=== PATIENT | female | born 1990 | race Caucasian/White ===

== ENCOUNTER 2022-01-23 04:29 | Day surgery (SDC) | payer OTHER ==
[2022-01-19 13:52] VITALS: BMI 24.1
[2022-01-23] MEDS ORDERED: LIDOCAINE HCL 1%, 10 MG/ML (20ML VIAL) ONE (07:29)
[2022-01-23] MEDS ORDERED: MIDAZOLAM HCL 2 MG/2 ML SINGLE DOSE VIAL ONE (13:02)
[2022-01-23] MEDS ORDERED: ceFAZolin SODIUM 1 GM VIAL IVPB ONE (13:09)
[2022-01-23] MEDS ORDERED: LIDOCAINE HCL 1%, 10 MG/ML (20ML VIAL) INF ONE (13:16)
[2022-01-23] MEDS ORDERED: BACITRACIN 15 GM TUBE TOPICAL OINTMENT TP ONE (13:22)
[2022-01-23] MEDS ORDERED: oxyCODONE HCL 5 MG TABLET PO PRN (13:39)
[2022-01-23] MEDS ORDERED: ACETAMINOPHEN 325 MG TABLET (FP) PO PRN (13:39)
[2022-01-23] MEDS ORDERED: ONDANSETRON 4 MG/2 ML VIAL IVPUSH PRN (13:39)
[2022-01-23] MEDS ORDERED: ONDANSETRON 4 MG/2 ML VIAL ONE (14:11)
[2022-01-23 15:02] VITALS: RESP 18
[2022-01-23] MEDS ORDERED: ACETAMINOPHEN 325 MG TABLET (FP) ONE (16:29)
[2022-01-23 17:07] VITALS: BP 123/55; PULSE 60; TEMP 97.9
== END 2022-01-23 17:15 | disposition home or self-care (01) ==
LOC: JASU-SURG 04:29
PROVIDERS: ATTEND Surgery
PROC: 0HBT0ZX Excision of Right Breast, Open Approach, Diagnostic (ICD-10-PCS; principal; 2022-01-23 11:00)
DX: N60.01 Solitary cyst of right breast (principal)
CPT/HCPCS: 81025; 88304-TC; 94760